=== PATIENT | female | born 1965 | race Caucasian/White ===

== ENCOUNTER 2018-08-28 09:23 | Day surgery (SDC) | payer BC ==
[~2018-08-28] VITALS: Ht 154.9 cm; Wt 70.3 kg
[2018-08-28 12:31] VITALS: BP 102/57
== END 2018-08-28 13:00 | disposition home or self-care (01) | DRG 951 ==
LOC: ENDO 09:23
PROVIDERS: ATTEND Surgery
PROC: 0DJD8ZZ Inspection of Lower Intestinal Tract, Via Natural or Artificial Opening Endoscopic (ICD-10-PCS; principal; 2018-08-28)
DX: Z12.11 Encounter for screening for malignant neoplasm of colon (principal); Q43.8 Other specified congenital malformations of intestine